=== PATIENT | female | born 1950 | race Caucasian/White ===

== ENCOUNTER 2017-04-03 10:47 | Emergency (ER) | payer BC, MEDICARE ==
[2017-04-03 11:29] VITALS: BP 150/89
--- NOTE | 2017-04-03 11:43 | UC ---
Dizzy HPI HPI Summary: 66 yo female awoke this AM Got up to go to the bathroom and experience vertigo no HORAN no ear ache no tinnitis no arm weakness no cp or sob no palpitations symptoms worse when she first stands then slowly improve no recent URI - History Of Current Complaint Chief Complaint: UCDizziness Stated Complaint: DIZZY,ELEVATED HEART RATE Time Seen by Provider: 04/03/17 10:58 Hx Obtained From: Patient Onset/Duration: Sudden Onset, Lasting Minutes Timing: Minutes Severity Initially: Moderate Severity Currently: None Pain Intensity: 0 Pain Scale Used: 0-10 Numeric Character: Room Spinning Aggravating Factor(s): Supine To Erect Associated Signs And Symptoms: Positive: Unsteady Gait. Negative: Nausea, Vomiting, Diaphoresis, Tinnitus, Chest Pain, SOB, Palpitations, Visual Changes, Decreased Oral Intake, Change In Medication, Change In Diet, OTC Medications - Allergies/Home Medications Allergies/Adverse Reactions: Allergies Allergy/AdvReac Type Severity Reaction Status Date / Time No Known Allergies Allergy Verified 04/03/17 10:54 PMH/Surg Hx/FS Hx/Imm Hx Previously Healthy: Yes - Surgical History Surgical History: Yes Surgery Procedure, Year, and Place: R knee - Family History Known Family History: Negative: Cardiac Disease, Hypertension, Diabetes - Social History Alcohol Use: None Substance Use Type: None Smoking Status (MU): Never Smoked Tobacco Review of Systems Constitutional: Negative Skin: Negative Eyes: Negative ENT: Negative Respiratory: Negative Cardiovascular: Negative Gastrointestinal: Negative Genitourinary: Negative Motor: Negative Neurovascular: Negative Musculoskeletal: Negative Neurological: Negative Psychological: Negative Is Patient Immunocompromised?: No All Other Systems Reviewed And Are Negative: Yes Physical Exam Triage Information Reviewed: Yes Appearance: Well-Appearing, No Pain Distress, Well-Nourished Vital Signs: Initial Vital Signs Temp 98 F 04/03/17 10:52 Pulse 103 04/03/17 10:52 Resp 18 04/03/17 10:52 BP 137/110 04/03/17 10:52 Pulse Ox 99 04/03/17 10:52 Vital Signs Reviewed: Yes Eyes: Positive: Other: - right conjunctival hemorrhage ENT: Positive: Hearing grossly normal, Pharynx normal, TMs normal, Uvula midline. Negative: Pharyngeal erythema, Nasal congestion, Nasal drainage, TM bulging, TM dull, TM red, Tonsillar swelling, Tonsillar exudate, Trismus, Muffled voice, Hoarse voice, Dental tenderness, Sinus tenderness Dental: Negative: Dental Fracture @, Abscess @ Neck: Positive: Supple, Nontender, No Lymphadenopathy, Other: - no bruits Respiratory: Positive: Lungs clear, Normal breath sounds, No respiratory distress, No accessory muscle use Cardiovascular: Positive: RRR, No Murmur, Pulses Normal Musculoskeletal: Positive: ROM Intact, No Edema Neurological: Positive: Alert, Muscle Tone Normal, Fatigued, Other: - GCS 15/15 , dtrs brisk and symmetric, cn2-12 intact Psychological Exam: Normal Skin Exam: Normal Diagnostics - Radiology No standard instances Xray Interpretation: No Acute Changes - CT brain - EKG Cardiac Rate: NL Cardiac Rhythm: Sinus: Normal Ectopy: None ST Segment: Normal Dizzy Course/Dx - Differential Dx/Diagnosis Provider Diagnoses: vertigo. elevate BP without diagnosis of HTN. right subconjunctival hemorrhage Discharge - Discharge Plan Condition: Stable Disposition: HOME Prescriptions: Meclizine TAB* [Antivert TAB*] 25 mg PO TID PRN #20 tab PRN Reason: Dizziness Patient Education Materials: Subconjunctival Hemorrhage (ED), Vertigo (ED) Referrals: No Primary Care Phys,NOPCP [Primary Care Provider] - Additional Instructions: Call Juani Morgan to make an appt recheck for worsening symptoms recheck here early next week if not 100% better eye may take 2 weeks to clear up
--- NOTE | 2017-04-03 12:06 | RAD ---
INDICATION: Vertigo. COMPARISON: There are no prior studies available for comparison. TECHNIQUE: Contiguous axial sections of the brain were obtained from the skull base to the vertex without contrast. FINDINGS: The ventricles, cisterns and sulci are enlarged consistent with diffuse atrophy. No significant focal abnormality or mass effect is seen. There is no evidence for hemorrhage. No significant focal osseous abnormality is seen. The visualized portion of the paranasal sinuses and mastoid air cells appear clear. IMPRESSION: NO EVIDENCE FOR ACUTE INTRACRANIAL ABNORMALITY.
== END 2017-04-03 12:25 | disposition home or self-care (01) ==
LOC: UCCORT 10:47
DX: R42 Dizziness and giddiness (principal); R03.0 Elevated blood-pressure reading, without diagnosis of hypertension; H11.31 Conjunctival hemorrhage, right eye
CPT/HCPCS: 70450; 93005; 99202; G0463